=== PATIENT | female | born 1950 | race Caucasian/White ===

== ENCOUNTER 2019-01-18 08:53 | Day surgery (SDC) | payer OTHER ==
[~2019-01-18] VITALS: Ht 157.5 cm; Wt 71.2 kg
[~2019-01-18 08:53] MED LIST: ENAL10TA78 PO; HYDR-3498 PO; LEVO-86 PO; LORA10CA PO; OMEP20CA16 PO; SIMV80TA18 PO; TRAZ-111 PO
[2019-01-18 09:30] VITALS: Ht 157.5 cm; Wt 71.2 kg
[2019-01-18 11:03] VITALS: BP 187/96; PULSE 60; RESP 33
[2019-01-18] MEDS ORDERED: MIDAZOLAM 1 MG/ML 2 ML INJ ONE ×2 (12:02)
[2019-01-18] MEDS ORDERED: FENTAnyl 50 MCG/ML VIAL ONE (12:02)
--- NOTE | 2019-01-19 09:09 | CONS ---
DATE OF ADMISSION: 01/18/2019 DATE OF CONSULTATION: PATIENT NAME: ARIEL SINGER TYPE OF CONSULTATION: Preoperative gastroenterology. Dear Dr. Acosta: I thank you very much for this kind referral. HISTORY OF PRESENT ILLNESS: Ms. Ariel Singer is a 68-year-old female patient who has been referre d to me for further evaluation of change in the bowel habit with diarrhea. No rectal bleeding. No p ast history of inflammatory bowel disease. The patient never had screening colonoscopy. Appetite is good. No weight loss. The patient also complains of upper abdominal pain, not responding to therap y with omeprazole. Not on nonsteroidal anti-inflammatory agents. No history of gallstones or liver disease. PAST MEDICAL HISTORY: She has hypertension. No diabetes. The patient is status post permanent pace maker insertion for bradycardia. No lung or kidney disease. She has got hyperlipidemia and hypothyr oidism. SOCIAL HISTORY: Nonsmoker. No alcohol abuse. FAMILY HISTORY: No family history of gastrointestinal tract neoplasm. ALLERGIES: NO DRUG ALLERGIES. MEDICATIONS: 1. Enalapril. 2. Omeprazole. 3. Levothyroxine. 4. Lipitor. PHYSICAL EXAMINATION: VITAL SIGNS: She is 5 feet, 2 inches tall and weighs 160 pounds. HEART: Normal heart sounds. LUNGS: Clear. ABDOMEN: Soft. No masses. Normal bowel sounds. NEUROLOGIC: Normal. IMPRESSION: 1. Change in the bowel habit with chronic diarrhea. 2. The patient never had screening colonoscopy. 3. Upper abdominal pain, not responding to therapy with omeprazole. 4. Hypertension. 5. Status post permanent pacemaker insertion for bradycardia. 6. Hypothyroidism. 7. Hyperlipidemia. PLAN: Screening colonoscopy and upper endoscopy for further evaluation. The procedures and possible complications are well explained to the patient. She understands and con sents to the procedures. I thank you once again. With warmest personal regards, Dictated By: PAGE BECKER/PAULIE Conf#: [id number] DID#: [id number]
== END 2019-01-18 12:47 | disposition home or self-care (01) ==
LOC: GIL 08:53
PROVIDERS: ATTEND Internal Medicine Gastroenterology
DX: Z12.11 Encounter for screening for malignant neoplasm of colon (principal); K64.8 Other hemorrhoids; K29.60 Other gastritis without bleeding; I10 Essential (primary) hypertension; E78.5 Hyperlipidemia, unspecified; E03.9 Hypothyroidism, unspecified
CPT/HCPCS: 43239; 45380; 88305; 88312; J2250; J3010; Z7610